=== PATIENT | female | born 1925 | race Caucasian/White ===

== ENCOUNTER 2016-08-04 13:23 | Inpatient (IN) | payer MEDICARE ==
--- NOTE | ~2016-08-04 | DS ---
Discharge Summary [facility] [address] [place]. [address] NAME: LEANNA ISLAS : [birth year] STATUS : DIS IN PAT#: [id number] AGE: 89 ADM/REG DATE : 08/04/16 MR#: [id number] REPORT SERV DATE: 08/11/16 DICTATED BY: CASSIDY PAGAN DATE: 08/10/16 REPORT STATUS : Draft TRANSCRIBED BY: MODL DATE: 08/10/16 ADMISSION DATE: 08/04/2016 DISCHARGE DATE: 08/10/2016 REASON FOR ADMISSION: Lower GI bleed with colitis. HISTORY OF PRESENT ILLNESS: Please refer to Dr. White's history and physical dated 08/04/2016 for complete details regarding the patient's admission. In brief, the patient was admitted to the Hospitalist Service for management evaluation of her lower GI bleed and colitis. HOSPITAL COURSE: From admission to 08/08/2016, please refer to Mr. Ian Jackson's interim summary. In brief, Mr. Jackson had taken care of the patient as she was diagnosed with lower GI bleed with colitis, abdominal pain, and hypertension. During that time, Dr. Waite was consulted. The patient had a colonoscopy which showed altered vascular congested erythematous, hemorrhagic inflamed vascular pattern, decreased mucosa in the rectum, in the rectosigmoid colon, in the sigmoid colon, and in the descending colon, and transverse colon, and ascending colon, and cecum, all of which were biopsied. Biopsy report is still pending at the time of this dictation. There were two 6 to 7 mm polyps in the cecum that were resected and retrieved and several polyps other in various portions of her colon. The colonoscopy also demonstrated diverticulosis. She had been on Levaquin and Flagyl. She had already been tolerating liquid diet. I assumed care of this patient from Mr. Jackson on 08/09/2016 for which case she was wanting to go home. At that point, however, she was not ambulating very well and given the fact that she lives at home with her sister, I wanted to make sure she was ambulating more. Prior to being discharged that day, she had walked around the halls with her son. On the day of discharge, she was requesting to go home. She is tolerating full diet. Her only complaint is that she has a little bit of swelling in her feet, for which she takes Demadex at home. The patient has reached maximal hospitalization, to be discharged in stable condition. DISCHARGE DIAGNOSES: 1. Lower gastrointestinal bleed with colitis, now resolved. 2. Abdominal pain, now resolved. 3. Hypertension. 4. Hyperlipidemia. 5. Trace lower extremity edema. PROCEDURES: Include colonoscopy, consulted with Dr. Waite. DISCHARGE MEDICATIONS: Include carvedilol 3.125 mg twice a day, diltiazem XT 240 mg daily, Xalatan one drop at bedtime, losartan 100 mg daily, Levaquin 750 mg once a day for three days, Demadex 10 mg a day, aspirin 81 mg a day, and Flagyl 500 mg every eight hours for three days. FOLLOWUP: The patient will follow up with Dr. Waite in a few weeks and her PCP. Discharge Summary [address] [address] NAME: LEANNA ISLAS : [birth year] STATUS : DIS IN PAT#: [id number] AGE: 89 ADM/REG DATE : 08/04/16 MR#: [id number] REPORT SERV DATE: 08/11/16 DICTATED BY: CASSIDY PAGAN DATE: 08/10/16 REPORT STATUS : Draft TRANSCRIBED BY: FE DATE: 08/10/16 SILAS Cassidy Pagan MD / [id number] CC: MD Blair Perry M.D. Richard Sadowitz, M.D.
--- NOTE | ~2016-08-04 | HP ---
History And Physical [facility] [id number] [place]. [address] NAME: LEANNA ISLAS : [birth year] STATUS : ADM Maria Luisa PAT#: [id number] AGE: 89 ADM/REG DATE : 08/04/16 MR#: [id number] REPORT SERV DATE: 08/04/16 DICTATED BY: PALOMO SHULTZ DATE: 08/04/16 REPORT STATUS : Draft TRANSCRIBED BY: FE DATE: 08/04/16 DATE OF ADMISSION: 08/04/2016 CHIEF COMPLAINT: GI bleed. This is an 89 years old female with a past medical history of colitis or GI bleed, also, history of hypertension and SVT, who presented with a two-day history of red stools and associated abdominal discomfort and nausea. The patient also describes her abdominal discomfort as crampy. She states that her bleeding started last night but it was not associated with a meal. She denies any chest pain. No shortness of breath. No subjective fever or chills. Denies any nonsteroidals. Denies any melena. She also states that she has not been drinking enough fluid because she has not wanted it. She has not had any vomiting. No hematemesis. She was seen in the hospital in 2013 for which at that time, the patient was diagnosed with colitis with a GI bleed with questionable ischemic colitis at that time and was seen by Dr. Cheng Waite GI physician. The patient was seen today in the ER by Dr. Ponce who ordered a CT of the abdomen and pelvis with findings of abnormal thickening of the colon wall of the transverse colon, extending into the splenic flexure and also some stranding in adjacent mesentery consistent with colitis or diverticulitis. There were no abscesses found and the hospitalist was called to admit the patient to the hospital. REVIEW OF SYSTEMS: Please refer to HPI. PAST MEDICAL HISTORY: Colitis; GI bleed; TMJ; hypertension; SVT; lymphedema; DVT; and hyperlipidemia. PAST SURGICAL HISTORY: Knee surgery. FAMILY HISTORY: Coronary artery disease. SOCIAL HISTORY: No tobacco, alcohol, or illicit drugs. 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 Her son is currently at the bedside with the patient at this time. ALLERGIES: ALLERGIES TO ERYTHROMYCIN. HOME MEDICATIONS: Aspirin 81 mg p.o. daily; diltiazem ER 240 mg p.o. daily; latanoprost ophthalmic drops at bedtime; losartan 100 mg p.o. at bedtime; propranolol 60 mg p.o. at bedtime; and torsemide 10 mg p.o. daily. PHYSICAL EXAMINATION: VITAL SIGNS: Temperature of 98.7, blood pressure 135/79 with a pulse of 90, respirations 16, and saturating 95% on room air. GENERAL: The patient is alert oriented x3. Well nourished, very pleasant. HEENT EXAM: Pupils equal, round, and reactive to light. Extraocular muscles are intact. Anicteric sclerae with dry mucous membranes. History And Physical [address] [address] NAME: LEANNA ISLAS : [birth year] STATUS : ADM Maria Luisa PAT#: [id number] AGE: 89 ADM/REG DATE : 08/04/16 MR#: [id number] REPORT SERV DATE: 08/04/16 DICTATED BY: PALOMO SHULTZ DATE: 08/04/16 REPORT STATUS : Draft TRANSCRIBED BY: FE DATE: 08/04/16 CARDIOVASCULAR: S1, S2. Regular rate and rhythm. No murmurs, rubs, or gallops. No JVD. RESPIRATORY: Clear to auscultation bilaterally. No wheezes or crackles. No signs of tachypnea. ABDOMEN: Positive bowel sounds. Soft with mild tenderness to palpation in the left lower quadrant. No rebound. No abdominal distention. EXTREMITIES: 2+ pulse bilaterally. No edema. NEUROLOGIC: Cranial nerves II through XII grossly intact. Moves all four extremities. No neuro focal deficits. LABORATORY DATA: Sodium 134, potassium 3.3 with a chloride of 95, bicarb of 29, BUN of 12, creatinine of 0.76 with a glucose of 112, albumin of 3.1, T-bilirubin of 0.8, alkaline phosphatase of 93, ALT of 17, and AST of 15. White count of 10.7, lactate is 0.9 with a hemoglobin of 12.5, and platelet count 250. INR of 1. ASSESSMENT AND PLAN: 1. GI bleed. 2. Colitis. 3. Hypertension. 4. Hyperlipidemia. The patient will be admitted to the Hospitalist Service and will be seen by one of my colleagues who will attend to this patient's care. We will continue with gentle hydration and as well as empiric antibiotics for colitis. Also we will check stool studies and also would check a mesenteric ultrasound and consult her GI physician, Dr. Waite for evaluation. RIC/FE Palomo Shultz M.D. / [id number] CC: Justine Tucker M.D.
--- NOTE | ~2016-08-04 | IDS ---
Interim Discharge Summary [facility] [address] [facility] [address] NAME: LEANNA ISLAS : [birth year] STATUS : ADM IN PAT#: [id number] AGE: 89 ADM/REG DATE : 08/04/16 MR#: [id number] REPORT SERV DATE: 08/09/16 DICTATED BY: LAST BURDICK DATE: 08/08/16 REPORT STATUS : Draft TRANSCRIBED BY: MODEm DATE: 08/08/16 ADMISSION DATE: 08/04/2016 DISCHARGE DATE: REASON FOR ADMISSION: This is an 89-year-old female with a previous medical history of colitis and GI bleed, came in with abdominal discomfort and had a 2-day history of red stools. INTERMIN DISCHARGE DIAGNOSES: 1. Lower GI bleed with colitis. 2. Abdominal pain. 3. Hypertension. 4. Hyperlipidemia. HOSPITAL COURSE: 1. GI bleed with colitis. The patient had previous admission for colitis and GI bleed and there was some concern at that time, of possible ischemic colitis. Had been recommended for colonoscopy but never followed up and got one. The patient was admitted this time and Dr. Waite had seen the patient on previous admission, was consulted again. Today, he did a colonoscopy which would show altered vascular congested erythematous, hemorrhagic inflamed in vascular pattern, decreased mucosa in the rectum, in the rectosigmoid colon, in the sigmoid colon, in the descending colon, in the transverse colon, in the ascending colon and cecum. This was biopsied. There were also two 6 to 7 mm polyps in the cecum that were resected and retrieved, one 2 mm polyp in the cecum resected and retrieved, three 5 to 7 mm polyps in the ascending colon resected and retrieved, two 2 to 3 mm polyps in the ascending colon which were resected and retrieved. Diverticulosis in the rectosigmoid colon and in the sigmoid colon and descending colon and nonbleeding internal hemorrhoids. The patient was sent back to the floor. Tolerating her clear liquid diet will be advancing her diet as tolerated and check CBC in the morning. Her abdominal pain has much improved. The patient's hemoglobin has been stable while here at the hospital, it was 12.5 on admission and is 12.7 today. She was started on IV Flagyl and Levaquin on admission. She had a mesenteric ultrasound which would be a negative study. Origin of the great vessels appear intact. No significant stenosis, nothing to explain abdominal pain based on ischemic changes. Additionally, she has been started on mesalamine by Dr. Waite. 2. Hypertension. The patient was on Inderal on admission long-standing home med that was discontinued due to its possible role could be playing in ischemic colitis, and we have added Coreg today for blood pressures. CURRENT MEDICATIONS: 1. Coreg 3.125 mg p.o. b.i.d. 2. Diltiazem CD 240 mg p.o. daily. 3. Latanoprost ophthalmic drops. 4. Levaquin 750 mg p.o. daily. 5. Losartan 100 mg p.o. at bedtime. Interim Discharge Summary [address] [address] NAME: LEANNA ISLAS : [birth year] STATUS : ADM IN PAT#: [id number] AGE: 89 ADM/REG DATE : 08/04/16 MR#: [id number] REPORT SERV DATE: 08/09/16 DICTATED BY: LAST BURDICK DATE: 08/08/16 REPORT STATUS : Draft TRANSCRIBED BY: ZEINAL DATE: 08/08/16 6. Mesalamine 2.4 g p.o. daily. 7. Metronidazole 500 mg p.o. t.i.d. 8. Multivitamin one tablet daily. CURRENT PLAN: The patient likely to discharge in the morning. We will need follow up on CBC and if she is tolerating diet if she is, she can likely discharge tomorrow. Biopsies are pending and she will obviously need to follow up outpatient with Dr. aWite. The patient care to be assumed by Ziyad Pagan and Mark Garnett. TDR/MODL Last Burdick APN / [id number] CC: Justine Tucker M.D. Richard Sadowitz, M.D.
--- NOTE | ~2016-08-04 | EGD ---
EGD REPORT [facility] [address] [address] NAME: ELANNA ISLAS : [birth year] STATUS : ADM IN PAT#: [id number] AGE: 89 ADM/REG DATE : 08/04/16 MR#: [id number] REPORT SERV DATE: 08/08/16 DICTATED BY: BRISA DONAHUE DATE: 08/08/16 REPORT STATUS : Draft TRANSCRIBED BY: [facility] DATE: 08/08/16 Endoscopy Center Patient Name: Leanna Islas Date of : 1925 Attending MD: BRISA DONAHUE MD Procedure Date No Time: 08/08/2016 Procedure: Colonoscopy Indications: Upper abdominal pain, Rectal bleeding, Abnormal CT of the GI tract Referring MD: MARIA DE JESUS SAUER Medicines: Propofol per Anesthesia Complications: No immediate complications. Procedure: Pre-Anesthesia Assessment: - ASA Grade Assessment: III - A patient with severe systemic disease. After I obtained informed consent, the scope was passed under direct vision. Throughout the procedure, the patient's blood pressure, pulse, and oxygen saturations were monitored continuously. The CF [id number] was introduced through the anus and advanced to the cecum, identified by appendiceal orifice and ileocecal valve. The colonoscopy was performed without difficulty. The patient tolerated the procedure well. The quality of the bowel preparation was good. Findings: The perianal and digital rectal examinations were normal. A diffuse area of moderately altered vascular, congested, erythematous, hemorrhagic, inflamed and dawqoqfc-ddzbfvi-gabjxgizi mucosa was found in the rectum, in the recto-sigmoid colon, in the sigmoid colon, in the descending colon, in the transverse colon, in the ascending colon and in the cecum. Biopsies were taken with a cold forceps from the right colon for evaluation of microscopic colitis. Biopsies were taken with a cold forceps from the left colon for evaluation of microscopic colitis. Two sessile polyps were found in the cecum. The polyps were 6 to 7 mm in size. These polyps were removed with a hot snare. Resection and retrieval were complete. A sessile polyp was found in the cecum. The polyp was 2 mm in size. The polyp was removed with a cold biopsy forceps. Resection and retrieval were complete. Three sessile polyps were found in the ascending colon. The polyps were 5 to 7 mm in size. These polyps were removed with a hot snare. Resection and retrieval were complete. Two sessile polyps were found in the ascending colon. The polyps were 2 to 3 mm in size. These polyps were removed with a cold biopsy forceps. EGD REPORT [address] [address] NAME: LEANNA ISLAS : [birth year] STATUS : ADM IN [facility]#: [id number] AGE: 89 ADM/REG DATE : 08/04/16 MR#: [id number] REPORT SERV DATE: 08/08/16 DICTATED BY: BRISA DONAHUE DATE: 08/08/16 REPORT STATUS : Draft TRANSCRIBED BY: [employer] DATE: 08/08/16 Resection and retrieval were complete. Multiple small and large-mouthed diverticula were found in the recto-sigmoid colon, in the sigmoid colon and in the descending colon. Non-bleeding internal hemorrhoids were found during retroflexion and were mild, medium-sized and Grade I (internal hemorrhoids that do not prolapse). Impression: - Altered vascular, congested, erythematous, hemorrhagic, inflamed and vircceii-wcdqxpx-oryhspksm mucosa in the rectum, in the recto-sigmoid colon, in the sigmoid colon, in the descending colon, in the transverse colon, in the ascending colon and in the cecum. Biopsied. - Two 6 to 7 mm polyps in the cecum. Resected and retrieved. - One 2 mm polyp in the cecum. Resected and retrieved. - Three 5 to 7 mm polyps in the ascending colon. Resected and retrieved. - Two 2 to 3 mm polyps in the ascending colon. Resected and retrieved. - Diverticulosis in the recto-sigmoid colon, in the sigmoid colon and in the descending colon. - Non-bleeding internal hemorrhoids. Recommendation: - Await pathology results. - Return to previous diet. - Repeat colonoscopy in 1 to 5 years for surveillance based on pathology results. - Continue present medications. - Return patient to [facility] for ongoing care. Procedure Code(s): --- Professional --- 44755, Colonoscopy, flexible, proximal to splenic flexure; with removal of tumor(s), polyp(s), or other lesion(s) by snare technique 23836, 59, Colonoscopy, flexible, proximal to splenic flexure; with biopsy, single or multiple Diagnosis Code(s): --- Professional --- K62.5, Hemorrhage of anus and rectum K92.2, Gastrointestinal hemorrhage, unspecified K52.9, Noninfective gastroenteritis and colitis, unspecified K62.89, Other specified diseases of anus and rectum K63.89, Other specified diseases of intestine D12.2, Benign neoplasm of ascending colon D12.0, Benign neoplasm of cecum EGD REPORT [address] [address] NAME: LEANNA ISLAS : [birth year] STATUS : ADM IN [facility]#: [id number] AGE: 89 ADM/REG DATE : 08/04/16 MR#: [id number] REPORT SERV DATE: 08/08/16 DICTATED BY: BRISA DONAHUE DATE: 08/08/16 REPORT STATUS : Draft TRANSCRIBED BY: [employer] DATE: 08/08/16 K64.0, First degree hemorrhoids K57.30, Diverticulosis of large intestine without perforation or abscess without bleeding R10.10, Upper abdominal pain, unspecified R93.3, Abnormal findings on diagnostic imaging of other parts of digestive tract CPT copyright 2013 [employer] [employer]. All rights reserved. The codes documented in this report are preliminary and upon financial investment adviser review may be revised to meet current compliance requirements. Brisa Donahue MD BRISA DONAHUE MD 08/08/2016 5:06 PM This report has been signed electronically. Number of Addenda: 0 Note Initiated On: 08/08/2016 3:25 PM Scope Withdrawal Time 0 hours 26 minutes 37 seconds [address] [address]
[2016-08-04 11:59] LABS: BASOPHILS 0.1 %; BASOPHILS ABSOLUTE 0.01 10/3/uL (0.0-0.16); EOSINOPHILS 2.2 %; EOSINOPHILS ABSOLUTE 0.23 10/3/uL (0.0-0.53); ER CBC TAT 0 Hrs 05 Mins; HEMATOCRIT 35.9 % (36.0-48.0); HEMOGLOBIN 12.5 g/dL (12.0-16.0); IMMATURE GRANULOCYTES 0.3 %; IMMATURE GRANULOCYTES ABSOLUTE 0.03 10/3/uL (0.0-0.11); LYMPHOCYTES 9.6 %; LYMPHOCYTES ABSOLUTE 1.03 10/3/uL (0.67-4.30); MANUAL DIFF NO %; MEAN CORPUS HGB CONC 34.8 g/dL (32.0-36.0); MEAN CORPUSCULAR HEMOGLOB 33.9 pg (26.0-34.0); MEAN CORPUSCULAR VOLUME 97.3 fL (80-100); MEAN PLATELET VOLUME 9.9 fL (9.2-13.0); MONOCYTES 5.2 %; MONOCYTES ABSOLUTE 0.56 10/3/uL (0.21-1.20); NEUTROPHILS 82.6 %; NEUTROPHILS ABSOLUTE 8.82 10/3/uL (2.02-8.40); PLATELET COUNT 250 10/3/uL (150-400); RED CELL COUNT 3.69 10/6/uL (4.0-5.6); WHITE BLOOD CELLS 10.7 10/3/uL (4.5-10.5)
[2016-08-04 12:04] LABS: PARTIAL THROMBO TIME 24.5 SEC (22.5-37.2); PROTIME (NOT ORD) 13.5 SEC (12.0-14.5)
[2016-08-04 12:16] LABS: A/G RATIO 0.7 (0.7-1.9); ALBUMIN 3.1 G/DL (3.5-5.0); ALKALINE PHOSPHATASE 93 U/L (45-117); CALCIUM, SERUM 8.8 MG/DL (8.5-10.4); CHLORIDE, SERUM 95 MMOL/L (96-112); CO2 (CARBON DIOXIDE) 29 MMOL/L (24-34); CREATININE 0.76 MG/DL (0.55-1.02); GFR AFRICAN AMERICAN 81 ML/MIN (>=60); GFR NON AFRICAN AMERICAN 70 ML/MIN (>=60); GLOBULIN 4.4 G/DL (2.5-4.1); POTASSIUM, SERUM 3.3 MMOL/L (3.5-5.3); SGOT(AST) 15 U/L (5-40); SGPT(ALT) 17 U/L (5-65); SODIUM, SERUM 134 MMOL/L (135-148); TOTAL PROTEIN 7.5 G/DL (6.0-8.5)
[2016-08-04 12:17] LABS: BUN (BLOOD UREA NITROGEN) 12 MG/DL (6-23); GLUCOSE, SERUM 112 MG/DL (60-99); TOTAL BILIRUBIN 0.8 MG/DL (0-1.2)
[~2016-08-04 13:23] MED LIST: ASAB PO; CARTIA XT240 MG/24 PO; FLAG500TAB PO; I10 PO; I20 PO; LEVAQUIN750 MG PO; VITAMIN D400 UNI1 PO; XALAT OPH
[2016-08-04] MEDS ORDERED: TAZTIA X1 PO (13:51)
[2016-08-04] MEDS ORDERED: ILA60 PO (13:52)
[2016-08-04] MEDS ORDERED: XALAT OPH (13:53)
[2016-08-04] MEDS ORDERED: DEMA10T PO (13:53)
[2016-08-04] MEDS ORDERED: HALF81 PO (13:53)
[2016-08-04] MEDS ORDERED: COZAAR100 MG PO (13:53)
[2016-08-05 06:31] LABS: BASOPHILS 0.1 %; BASOPHILS ABSOLUTE 0.01 10/3/uL (0.0-0.16); EOSINOPHILS 1.8 %; EOSINOPHILS ABSOLUTE 0.15 10/3/uL (0.0-0.53); HEMOGLOBIN 10.8 g/dL (12.0-16.0); IMMATURE GRANULOCYTES 0.4 %; IMMATURE GRANULOCYTES ABSOLUTE 0.03 10/3/uL (0.0-0.11); LYMPHOCYTES 12.4 %; LYMPHOCYTES ABSOLUTE 1.04 10/3/uL (0.67-4.30); MEAN CORPUS HGB CONC 35.6 g/dL (32.0-36.0); MEAN CORPUSCULAR HEMOGLOB 34.1 pg (26.0-34.0); MEAN CORPUSCULAR VOLUME 95.6 fL (80-100); MEAN PLATELET VOLUME 9.9 fL (9.2-13.0); MONOCYTES ABSOLUTE 0.59 10/3/uL (0.21-1.20); NEUTROPHILS 78.3 %; NEUTROPHILS ABSOLUTE 6.59 10/3/uL (2.02-8.40); PLATELET COUNT 205 10/3/uL (150-400); RBC DISTRIBUTION WIDTH 13.2 % (12.0-16.0); RED CELL COUNT 3.17 10/6/uL (4.0-5.6); WHITE BLOOD CELLS 8.4 10/3/uL (4.5-10.5)
[2016-08-05 06:34] LABS: HEMATOCRIT 30.3 % (36.0-48.0); MANUAL DIFF NO %
[2016-08-05 06:47] LABS: CALCIUM, SERUM 8.3 MG/DL (8.5-10.4); CHLORIDE, SERUM 99 MMOL/L (96-112); CO2 (CARBON DIOXIDE) 29 MMOL/L (24-34); CREATININE 0.66 MG/DL (0.55-1.02); GFR AFRICAN AMERICAN 91 ML/MIN (>=60); GFR NON AFRICAN AMERICAN 78 ML/MIN (>=60); GLUCOSE, SERUM 113 MG/DL (60-99); PHOSPHORUS, SERUM 2.1 MG/DL (2.5-4.5); POTASSIUM, SERUM 3.3 MMOL/L (3.5-5.3); SGOT(AST) 15 U/L (5-40); SGPT(ALT) 14 U/L (5-65); SODIUM, SERUM 134 MMOL/L (135-148); TOTAL BILIRUBIN 0.6 MG/DL (0-1.2); TOTAL PROTEIN 6.2 G/DL (6.0-8.5)
[2016-08-05 06:49] LABS: A/G RATIO 0.6 (0.7-1.9); ALBUMIN 2.4 G/DL (3.5-5.0); ALKALINE PHOSPHATASE 74 U/L (45-117); BUN (BLOOD UREA NITROGEN) 8 MG/DL (6-23); GLOBULIN 3.8 G/DL (2.5-4.1)
[2016-08-05 17:06] LABS: HEMATOCRIT 32.5 % (36.0-48.0); HEMOGLOBIN 11.1 g/dL (12.0-16.0)
[2016-08-06 05:59] LABS: BASOPHILS 0.2 %; BASOPHILS ABSOLUTE 0.01 10/3/uL (0.0-0.16); EOSINOPHILS 2.9 %; EOSINOPHILS ABSOLUTE 0.19 10/3/uL (0.0-0.53); HEMATOCRIT 33.9 % (36.0-48.0); HEMOGLOBIN 11.6 g/dL (12.0-16.0); IMMATURE GRANULOCYTES 0.5 %; IMMATURE GRANULOCYTES ABSOLUTE 0.03 10/3/uL (0.0-0.11); LYMPHOCYTES 14.8 %; LYMPHOCYTES ABSOLUTE 0.98 10/3/uL (0.67-4.30); MEAN CORPUS HGB CONC 34.2 g/dL (32.0-36.0); MEAN CORPUSCULAR HEMOGLOB 33.3 pg (26.0-34.0); MEAN CORPUSCULAR VOLUME 97.4 fL (80-100); MEAN PLATELET VOLUME 10.1 fL (9.2-13.0); MONOCYTES 7.7 %; MONOCYTES ABSOLUTE 0.51 10/3/uL (0.21-1.20); NEUTROPHILS 73.9 %; NEUTROPHILS ABSOLUTE 4.91 10/3/uL (2.02-8.40); PLATELET COUNT 238 10/3/uL (150-400); RBC DISTRIBUTION WIDTH 13.1 % (12.0-16.0); RED CELL COUNT 3.48 10/6/uL (4.0-5.6); WHITE BLOOD CELLS 6.6 10/3/uL (4.5-10.5)
[2016-08-06 06:04] LABS: MANUAL DIFF NO %
[2016-08-06 06:09] LABS: CALCIUM, SERUM 8.9 MG/DL (8.5-10.4); CHLORIDE, SERUM 104 MMOL/L (96-112); CO2 (CARBON DIOXIDE) 26 MMOL/L (24-34); CREATININE 0.62 MG/DL (0.55-1.02); GFR AFRICAN AMERICAN 93 ML/MIN (>=60); GFR NON AFRICAN AMERICAN 80 ML/MIN (>=60); GLUCOSE, SERUM 130 MG/DL (60-99); POTASSIUM, SERUM 3.5 MMOL/L (3.5-5.3); SODIUM, SERUM 138 MMOL/L (135-148)
[2016-08-06 06:11] LABS: BUN (BLOOD UREA NITROGEN) 4 MG/DL (6-23); C-REACTIVE PROTEIN 29.3 MG/L (<8.0)
[2016-08-06 08:41] LABS: SED RATE 55 MM/HR (0-20)
[2016-08-07 05:34] LABS: BUN (BLOOD UREA NITROGEN) 6 MG/DL (6-23); CALCIUM, SERUM 8.6 MG/DL (8.5-10.4); CHLORIDE, SERUM 104 MMOL/L (96-112); CO2 (CARBON DIOXIDE) 23 MMOL/L (24-34); CREATININE 0.56 MG/DL (0.55-1.02); GFR AFRICAN AMERICAN 96 ML/MIN (>=60); GFR NON AFRICAN AMERICAN 83 ML/MIN (>=60); GLUCOSE, SERUM 119 MG/DL (60-99); POTASSIUM, SERUM 3.6 MMOL/L (3.5-5.3); SODIUM, SERUM 138 MMOL/L (135-148)
[2016-08-08 04:21] LABS: BASOPHILS 0.2 %; BASOPHILS ABSOLUTE 0.02 10/3/uL (0.0-0.16); EOSINOPHILS 1.6 %; EOSINOPHILS ABSOLUTE 0.13 10/3/uL (0.0-0.53); HEMATOCRIT 36.1 % (36.0-48.0); HEMOGLOBIN 12.7 g/dL (12.0-16.0); IMMATURE GRANULOCYTES 0.7 %; IMMATURE GRANULOCYTES ABSOLUTE 0.06 10/3/uL (0.0-0.11); LYMPHOCYTES 13.2 %; LYMPHOCYTES ABSOLUTE 1.06 10/3/uL (0.67-4.30); MEAN CORPUS HGB CONC 35.2 g/dL (32.0-36.0); MEAN CORPUSCULAR VOLUME 96.5 fL (80-100); MEAN PLATELET VOLUME 10.2 fL (9.2-13.0); MONOCYTES 9.5 %; MONOCYTES ABSOLUTE 0.76 10/3/uL (0.21-1.20); NEUTROPHILS 74.8 %; NEUTROPHILS ABSOLUTE 5.98 10/3/uL (2.02-8.40); PLATELET COUNT 289 10/3/uL (150-400); RBC DISTRIBUTION WIDTH 13.2 % (12.0-16.0); RED CELL COUNT 3.74 10/6/uL (4.0-5.6)
[2016-08-08 04:30] LABS: MANUAL DIFF NO %
[2016-08-09 05:20] LABS: BASOPHILS 0.3 %; BASOPHILS ABSOLUTE 0.02 10/3/uL (0.0-0.16); EOSINOPHILS 3.1 %; EOSINOPHILS ABSOLUTE 0.21 10/3/uL (0.0-0.53); HEMOGLOBIN 10.5 g/dL (12.0-16.0); IMMATURE GRANULOCYTES 0.4 %; IMMATURE GRANULOCYTES ABSOLUTE 0.03 10/3/uL (0.0-0.11); LYMPHOCYTES 13.7 %; LYMPHOCYTES ABSOLUTE 0.92 10/3/uL (0.67-4.30); MEAN CORPUS HGB CONC 35.1 g/dL (32.0-36.0); MEAN CORPUSCULAR HEMOGLOB 33.8 pg (26.0-34.0); MEAN CORPUSCULAR VOLUME 96.1 fL (80-100); MEAN PLATELET VOLUME 9.8 fL (9.2-13.0); MONOCYTES ABSOLUTE 0.67 10/3/uL (0.21-1.20); NEUTROPHILS 72.5 %; NEUTROPHILS ABSOLUTE 4.87 10/3/uL (2.02-8.40); PLATELET COUNT 238 10/3/uL (150-400); RBC DISTRIBUTION WIDTH 13.1 % (12.0-16.0); RED CELL COUNT 3.11 10/6/uL (4.0-5.6); WHITE BLOOD CELLS 6.7 10/3/uL (4.5-10.5)
[2016-08-09 05:21] LABS: HEMATOCRIT 29.9 % (36.0-48.0); MANUAL DIFF NO %
[2016-08-10] MEDS ORDERED: COREG3 PO (09:52)
[2016-08-10] MEDS ORDERED: LEVAQUIN750 MG PO (09:53)
[2016-08-10] MEDS ORDERED: FLAG500TAB PO (09:55)
== END 2016-08-10 12:14 | disposition home health service (06) | DRG 392 ==
LOC: ER 13:23 → 7NO 15:11
PROVIDERS: Emergency Medicine; Internal Medicine; Internal Medicine Gastroenterology; Nurse Practitioner Gerontology
PROC: 0DBK8ZZ Excision of Ascending Colon, Via Natural or Artificial Opening Endoscopic (ICD-10-PCS; 2016-08-08)
PROC: 0DBF8ZX Excision of Right Large Intestine, Via Natural or Artificial Opening Endoscopic, Diagnostic (ICD-10-PCS; principal; 2016-08-08 15:43)
PROC: 0DBH8ZZ Excision of Cecum, Via Natural or Artificial Opening Endoscopic (ICD-10-PCS; 2016-08-08 15:43)
DX: K52.9 Noninfective gastroenteritis and colitis, unspecified (principal); I10 Essential (primary) hypertension; E78.5 Hyperlipidemia, unspecified; D12.0 Benign neoplasm of cecum; D12.2 Benign neoplasm of ascending colon; K64.0 First degree hemorrhoids; K57.30 Diverticulosis of large intestine without perforation or abscess without bleeding
CPT/HCPCS: 36415; 74176; 80048; 80053; 83605; 83735; 84100; 84132; 85014; 85018; 85025; 85610; 85652; 85730; 86140; 86850; 86900; 86901; 87045; 87046; 87046-59; 87328; 87329; 87493; 87493-59; 87899; 87899-59; 88305; 93975; 99285; A9270-GY; J1956; J2405